=== PATIENT | female | born 1980 | race Caucasian/White ===

== ENCOUNTER 2020-04-21 16:08 | Outpatient (CLI) | payer OTHER ==
[2020-04-21] MEDS ORDERED: MULT-658 PO (16:43)
[2020-04-21] MEDS ORDERED: CA C1TAB60 PO (16:43)
[2020-04-21 17:03] LABS: BASOPHILS % (AUTO) 1 % (0-1); EOSINOPHILS % (AUTO) 1 % (1-7); LYMPHOCYTES % (AUTO) 28 % (22-44); MEAN CORPUSCULAR HGB CONC 33.6 g/dL (32.4-35.8); MEAN PLATELET VOLUME 9.7 fL (7.4-10.4); MONOCYTES % (AUTO) 8 % (2-9); NEUTROPHILS % (AUTO) 63 % (42-75); PLATELET COUNT 263 x10^3/uL (130-400); RED BLOOD COUNT 4.76 x10^6/uL (3.82-5.3); RED CELL DISTRIBUTION WIDTH 13.7 % (9.6-15.2)
[2020-04-21 17:13] LABS: ALBUMIN 4.2 g/dL (3.4-5.0); ANION GAP 6 mmol/L (5-15); CALCIUM 9.7 mg/dL (8.5-10.1); CHLORIDE 106 mmol/L (98-107); CREATININE 0.85 mg/dL (0.55-1.02); TOTAL IRON BINDING CAPACITY 296 mcg/dL (250-450)
[2020-04-21 17:15] LABS: MD NO
[2020-04-21 17:41] LABS: % IRON SATURATION 15 % (20-55); ALANINE AMINOTRANSFERASE 23 U/L (12-78); ALKALINE PHOSPHATASE 85 U/L (45-117); BILIRUBIN,TOTAL 0.4 mg/dL (0.2-1.0); IRON LEVEL 45 mcg/dL (50-170); PREALBUMIN 21.3 mg/dL (20.0-40.0); TOTAL PROTEIN 8.6 g/dL (6.4-8.2); TRANSFERRIN 227 mg/dL (200-360)
== END 2020-04-21 23:59 | disposition home or self-care (01) ==
LOC: STAR 16:08
PROVIDERS: ATTEND Thoracic Surgery (Cardiothoracic Vascular Surgery)
DX: Z01.818 Encounter for other preprocedural examination (principal)
CPT/HCPCS: 36415; 71046; 80053; 82306; 82607; 82728; 82746; 83540; 83550; 83970; 84134; 84425; 84466; 85025; 93005

== ENCOUNTER 2020-05-06 06:51 | Inpatient (IN) | payer OTHER ==
[~2020-05-06] VITALS: Ht 170.2 cm; Wt 113.0 kg
[~2020-05-06 06:51] MED LIST: CA C1TAB60 PO; MULT-658 PO
[2020-05-06] MEDS ORDERED: BUPIVACAINE/PF 0.5% ONE (06:58)
[2020-05-06] MEDS ORDERED: ACETAMINOPHEN 100 ML IVPB ONE (08:30)
[2020-05-06] MEDS ORDERED: SCOPOLAMINE 1MG PATCH TD SCH (08:30)
[2020-05-06] MEDS ORDERED: LACTATED RINGERS 1,000 ML IV SCH ×2 (08:30→11:30)
[2020-05-06] MEDS ORDERED: CHLORHEXIDINE 15 ML UDC MM ONE (08:30)
[2020-05-06 09:16] LABS: CHOL/HDL RATIO 2.2; LDL/HDL RATIO 0.8 (0.5-3.0)
[2020-05-06] MEDS ORDERED: FENTANYL PF 250 MCG/5ML ONE (10:02)
[2020-05-06] MEDS ORDERED: ROCURONIUM 10MG/ML,5ML ONE ×2 (10:02)
[2020-05-06] MEDS ORDERED: PROPOFOL 10 MG/ML, 20ML ONE (10:02)
[2020-05-06] MEDS ORDERED: LIDOCAINE-MPF 2% ,5ML ONE (10:02)
[2020-05-06] MEDS ORDERED: MIDAZOLAM 1 MG/ML, 2ML ONE (10:09)
[2020-05-06] MEDS ORDERED: DEXAMETHASONE 4 MG/ML, 1ML ONE ×3 (10:17)
[2020-05-06] MEDS ORDERED: CEFAZOLIN 1,000 MG ONE ×2 (10:18)
[2020-05-06] MEDS ORDERED: HYDROmorphone 1 MG/ML, 1ML INJ IVPush PRN (10:30)
[2020-05-06] MEDS ORDERED: ONDANSETRON 2MG/ML, 2ML IVPush PRN (10:30)
[2020-05-06] MEDS ORDERED: METOPROLOL 1 MG/ML, 5ML ONE (10:37)
[2020-05-06] MEDS ORDERED: ONDANSETRON 2MG/ML, 2ML ONE (11:09)
[2020-05-06] MEDS ORDERED: SUGAMMADEX 200 MG/2 ML IVPush ONE (11:09)
[2020-05-06] MEDS ORDERED: FENTANYL PF 100 MCG/2ML ONE (11:26)
[2020-05-06] MEDS ORDERED: DIAZEPAM 5 MG/ML, 2ML ONE (11:26)
[2020-05-06] MEDS ORDERED: PROMETHAZINE 25 MG/ML, 1ML IM PRN (11:30)
[2020-05-06] MEDS ORDERED: ENALAPRILAT 1.25 MG/ML, 2ML IV PRN (11:30)
[2020-05-06] MEDS ORDERED: hydrALAzine 20 MG/ML, 1ML IVPush PRN (11:30)
[2020-05-06] MEDS ORDERED: PHENOL THROAT SPRAY BOTTLE MM PRN (11:30)
[2020-05-06] MEDS ORDERED: PROMETHAZINE 12.5 MG SUPP PR PRN (11:30)
[2020-05-06] MEDS ORDERED: LORazepam 2 MG/ML, 1ML IV PRN (11:30)
[2020-05-06] MEDS: DIAZEPAM 5 MG/ML, 2ML IVPush PRN ×2 (11:45→12:00)
[2020-05-06] MEDS: FENTANYL PF 100 MCG/2ML IV PRN ×2 (11:45→11:50)
[2020-05-06] MEDS ORDERED: PROMETHAZINE 25 MG/ML, 1ML ONE (11:49)
[2020-05-06] MEDS ORDERED: HYDROmorphone 1 MG/ML, 1ML INJ ONE (12:05)
[2020-05-06] MEDS ORDERED: PROMETHAZINE 25 MG/ML, 1ML IVPush PRN (12:30)
[2020-05-06 13:00] VITALS: BP 118/77
[2020-05-06] MEDS: morphine SULFATE 10 MG/ML, 1ML IVPush PRN ×9 (13:51→21:34)
[2020-05-06] MEDS: FAMOTIDINE 20 MG/2 ML IVPush SCH ×2 (14:40→20:17)
[2020-05-06] MEDS: ONDANSETRON 2MG/ML, 2ML IVPush PRN (17:01)
[2020-05-06] MEDS: KETOROLAC 30 MG/1 ML IVPush PRN (17:42)
[2020-05-06] MEDS: LACTATED RINGERS 1,000 ML IV SCH (18:31)
[2020-05-06] MEDS ORDERED: OXYcodone 5 MG/5 ML ORAL.SOL UDC PO PRN (19:00)
[2020-05-06 20:27] VITALS: BP 109/72
[2020-05-06] MEDS: HYDROcodone/APAP 7.5-325MG/15ML UDC PO PRN (21:27)
[2020-05-06] MEDS: DIPHENHYDRAMINE 50 MG/ML, 1ML IV PRN (21:37)
[2020-05-07] MEDS: ONDANSETRON 2MG/ML, 2ML IVPush PRN ×2 (00:21→08:14)
[2020-05-07] MEDS: morphine SULFATE 10 MG/ML, 1ML IVPush PRN ×4 (00:21→07:48)
[2020-05-07 01:32] VITALS: BP 120/84
[2020-05-07] MEDS: LACTATED RINGERS 1,000 ML IV SCH ×2 (01:49→10:11)
[2020-05-07] MEDS: HYDROcodone/APAP 7.5-325MG/15ML UDC PO PRN ×4 (01:54→14:11)
[2020-05-07 04:15] VITALS: BP 101/67
[2020-05-07] MEDS: KETOROLAC 30 MG/1 ML IVPush PRN (04:20)
[2020-05-07 06:10] LABS: BASOPHILS % (AUTO) 0 % (0-1); EOSINOPHILS % (AUTO) 0 % (1-7); LYMPHOCYTES % (AUTO) 9 % (22-44); MEAN CORPUSCULAR HEMOGLOBIN 29.8 pg (27.0-34.8); MEAN CORPUSCULAR HGB CONC 32.6 g/dL (32.4-35.8); MEAN PLATELET VOLUME 10.2 fL (7.4-10.4); MONOCYTES % (AUTO) 8 % (2-9); NEUTROPHILS % (AUTO) 82 % (42-75); PLATELET COUNT 180 x10^3/uL (130-400); RED BLOOD COUNT 4.36 x10^6/uL (3.82-5.3); RED CELL DISTRIBUTION WIDTH 14.1 % (9.6-15.2)
[2020-05-07 06:18] LABS: ALBUMIN 3.1 g/dL (3.4-5.0); ANION GAP 6 mmol/L (5-15); CALCIUM 8.7 mg/dL (8.5-10.1); CHLORIDE 107 mmol/L (98-107); CREATININE 0.64 mg/dL (0.55-1.02)
[2020-05-07 06:39] LABS: MD NO
[2020-05-07] MEDS: FAMOTIDINE 20 MG/2 ML IVPush SCH (08:16)
[2020-05-07] MEDS ORDERED: ENOXAPARIN 40 MG/0.4 ML SQ SCH (09:00)
[2020-05-07] MEDS: DIPHENHYDRAMINE 50 MG/ML, 1ML IV PRN (10:21)
[2020-05-07] MEDS ORDERED: HYDR15SO3 PO (11:35)
[2020-05-07 14:15] VITALS: BP 116/77
== END 2020-05-07 15:07 | disposition home or self-care (01) | DRG 621 ==
LOC: ORIP 06:51 → 3WST 13:12 → DCLOUNGE 05-07 15:04
PROVIDERS: ADMIT Thoracic Surgery (Cardiothoracic Vascular Surgery); ATTEND Thoracic Surgery (Cardiothoracic Vascular Surgery)
PROC: 0BQT4ZZ Repair Diaphragm, Percutaneous Endoscopic Approach (ICD-10-PCS; 2020-05-06)
PROC: 0DB64Z3 Excision of Stomach, Percutaneous Endoscopic Approach, Vertical (ICD-10-PCS; principal; 2020-05-06 09:30)
DX: E66.01 Morbid (severe) obesity due to excess calories (principal); G47.30 Sleep apnea, unspecified; K21.9 Gastro-esophageal reflux disease without esophagitis; K44.9 Diaphragmatic hernia without obstruction or gangrene; R32 Unspecified urinary incontinence; M54.9 Dorsalgia, unspecified; Z68.39 Body mass index [BMI] 39.0-39.9, adult
CPT/HCPCS: 36415; J3490; S0020; 80048; 80061; 82040; 85025; 87635; G0378; J0131; J0690; J1100; J1170; J1650; J1885; J2250; J2405; J2550; J2704; J3010; J3360; J1200; J2270; J7120